=== PATIENT | male | born 1955 | race Caucasian/White ===

== ENCOUNTER 2017-11-11 12:12 | Emergency (ER) | payer BC ==
[~2017-11-11] VITALS: Ht 177.8 cm; Wt 101.2 kg
[2017-11-11 13:01] LABS: MEAN CORPUSCULAR HEMOGLOBIN 33.4 PG (27.0-31.0); MEAN CORPUSCULAR HGB CONC 32.9 G/DL (32.0-36.0); MEAN CORPUSCULAR VOLUME 102 FL (80-99); MEAN PLATELET VOLUME 10.4 FL (6.5-10.1); PLATELET COUNT 88 K/UL (150-450); RED BLOOD COUNT 4.52 M/UL (4.70-6.10); RED CELL DISTRIBUTION WIDTH 12.8 % (11.6-14.8); WHITE BLOOD COUNT 3.8 K/UL (4.8-10.8)
[2017-11-11] MEDS ORDERED: Norco 5mg/325mg tab ORAL ONE (13:30)
[2017-11-11] MEDS ORDERED: Amoxicillin 500mg cap ORAL ONE (13:30)
[2017-11-11 13:32] LABS: BAND NEUTROPHILS % (MANUAL) 2 % (0-8); BASOPHILS % (MANUAL) 1 % (0-2); EOSINOPHILS % (MANUAL) 2 % (0-3); LYMPHOCYTES % (MANUAL) 34 % (20-45); MACROCYTES 1+; NEUTROPHILS % (MANUAL) 53 % (45-75); PLATELET ESTIMATE DECREASED; PLATELET MORPHOLOGY NORMAL; TOTAL CELLS COUNTED 100
[2017-11-11 13:39] LABS: PATH BLOOD SMEAR/OMC SENT TO PATHOLOGIST
[2017-11-11 14:45] LABS: ANION GAP 10 mmol/L (5-15); CALCIUM 8.8 MG/DL (8.5-10.1); CARBON DIOXIDE 25 MMOL/L (21-32); CHLORIDE 104 MMOL/L (98-107); CREATININE 0.8 MG/DL (0.55-1.30); GLOMERULAR FILTRATION RATE > 60 mL/min (>60); POTASSIUM 3.7 MMOL/L (3.5-5.1); SODIUM 139 MMOL/L (136-145)
[2017-11-11 14:56] LABS: ALANINE AMINOTRANSFERASE 52 U/L (12-78); ALBUMIN/GLOBULIN RATIO 0.8 (1.0-2.7); ASPARTATE AMINO TRANSFERASE 84 U/L (15-37); TOTAL PROTEIN 7.9 G/DL (6.4-8.2)
[2017-11-11 14:58] LABS: BILIRUBIN,DIRECT 0.4 MG/DL (0.0-0.3)
--- NOTE | 2017-11-11 15:43 | Emergency Room Report ---
History of Present Illness General Chief Complaint: General Complaint Source: Patient Present Illness HPI 62 y/o male c/o evaluation due to low platelet count by PCP. States he had labs drawn and had a platelet count of 70. Patient's PCP then told the patient he had to come to the ER for evaluation. Patient states he has a problem with drinking ETOH in excess and was in a music festival 2 months ago in [place] and upon returning has been having some fatigue. States he's been worked up by PCP but then platelet count was at 70k and was advised to go to the ER for further eval. Denies any unexplained weight loss, easy bruising, easy bleeding, current n/v/f/c/d, abd pain, back pain, neck pain, photophobia, phonophobia, CP, SOB or headache. Allergies: Coded Allergies: SHELLFISH DERIVED (Verified Allergy, Unknown, 11/11/17) Patient History Past Medical History: see triage record Pertinent Family History: NM, other - breast cancer Social History: Reports: alcohol use Reviewed Nursing Documentation: PMH: Agreed, PSxH: Agreed Nursing Documentation-PMH Past Medical History: No Stated History Review of Systems All Other Systems: negative except mentioned in HPI Physical Exam Vital Signs Date Time Temp Pulse Resp B/P (MAP) Pulse Ox O2 Delivery O2 Flow Rate FiO2 11/11/17 12:21 97.7 76 20 144/89 96 Room Air Sp02 EP Interpretation: reviewed, normal General Appearance: no apparent distress, alert, GCS 15, non-toxic Head: normocephalic, atraumatic Eyes: bilateral eye normal inspection, bilateral eye PERRL ENT: hearing grossly normal, normal pharynx, no angioedema, normal voice Neck: full range of motion, supple/symm/no masses Respiratory: chest non-tender, lungs clear, normal breath sounds, speaking full sentences Cardiovascular #1: regular rate, rhythm, no edema Musculoskeletal: back normal, gait/station normal, normal range of motion, non- tender Neurologic: alert, oriented x3, responsive, motor strength/tone normal, sensory intact, speech normal Skin: normal color, no rash, warm/dry, well hydrated Lymphatic: no adenopathy Medical Decision Making PA Attestation Dr. Sprague my supervising physician with whom patient management has been discussed with. Diagnostic Impression: Primary Impression: Thrombocytopenia Additional Impressions: ETOH abuse Abnormal LFTs Macrocytic ER Course Pt. presents to the ED c/o low platelet Ddx considered but are not limited to anemia, thrombocytopenia, sepsis, ETOH abuse, leukemia Vital signs: are WNL, pt. is afebrile H&PE are most consistent with macrocyticnormocromic anemia with thrombocytopenia likely due to ETOH abuse.Patients platelet's improved from previous reading. Patient states he feels ok and does not understand why he was forced to come to the ER. Advised to f/u with PCP for further eval and to abstain from ETOH use. Advised of possible nutritional deficiency from ETOH use. ORDERS: CBC, CMP, Path Smear ED INTERVENTIONS: none required at this time. DISCHARGE: At this time pt. is stable for d/c to home. Will provide printed patient care instructions, and any necessary prescriptions. Care plan and follow up instructions have been discussed with the patient prior to discharge. Laboratory Tests Test 11/11/17 12:45 11/11/17 14:16 White Blood Count 3.8 K/UL (4.8-10.8) L Red Blood Count 4.52 M/UL (4.70-6.10) L Hemoglobin 15.1 G/DL (14.2-18.0) Hematocrit 45.9 % (42.0-52.0) Mean Corpuscular Volume 102 FL (80-99) H Mean Corpuscular Hemoglobin 33.4 PG (27.0-31.0) H Mean Corpuscular Hemoglobin Concent 32.9 G/DL (32.0-36.0) Red Cell Distribution Width 12.8 % (11.6-14.8) Platelet Count 88 K/UL (150-450) L Mean Platelet Volume 10.4 FL (6.5-10.1) H Neutrophils (%) (Auto) % (45.0-75.0) Lymphocytes (%) (Auto) % (20.0-45.0) Monocytes (%) (Auto) % (1.0-10.0) Eosinophils (%) (Auto) % (0.0-3.0) Basophils (%) (Auto) % (0.0-2.0) Differential Total Cells Counted 100 Neutrophils % (Manual) 53 % (45-75) Lymphocytes % (Manual) 34 % (20-45) Monocytes % (Manual) 8 % (1-10) Eosinophils % (Manual) 2 % (0-3) Basophils % (Manual) 1 % (0-2) Band Neutrophils 2 % (0-8) Platelet Estimate Decreased L Platelet Morphology Normal Macrocytosis 1+ Sodium Level 139 MMOL/L (136-145) Potassium Level 3.7 MMOL/L (3.5-5.1) Chloride Level 104 MMOL/L (98-107) Carbon Dioxide Level 25 MMOL/L (21-32) Anion Gap 10 mmol/L (5-15) Blood Urea Nitrogen 11 mg/dL (7-18) Creatinine 0.8 MG/DL (0.55-1.30) Estimate Glomerular Filtration Rate > 60 mL/min (>60) Glucose Level 95 MG/DL (74-106) Calcium Level 8.8 MG/DL (8.5-10.1) Total Bilirubin 1.4 MG/DL (0.2-1.0) H Direct Bilirubin 0.4 MG/DL (0.0-0.3) H Aspartate Amino Transferase (AST) 84 U/L (15-37) H Alanine Aminotransferase (ALT) 52 U/L (12-78) Alkaline Phosphatase 122 U/L (46-116) H Total Protein 7.9 G/DL (6.4-8.2) Albumin 3.5 G/DL (3.4-5.0) Globulin 4.4 g/dL Albumin/Globulin Ratio 0.8 (1.0-2.7) L Last Vital Signs Date Time Temp Pulse Resp B/P (MAP) Pulse Ox O2 Delivery O2 Flow Rate FiO2 11/11/17 12:21 97.7 76 20 144/89 96 Room Air Disposition: HOME, SELF-CARE Condition: Stable Referrals: [employer] [facility],REFERRIN (PCP) Patient Instructions: Alcohol Abuse and Nutrition, Alcoholic Liver Disease, Thrombocytopenia Additional Instructions: Patient advised to follow up with PCP regarding findings. Patient advised to return if they experience any shortness of breath, chest pain, abdominal pain, uncontrollable bleeding, or severe headache. Patient advised to abstain from alcohol use. RICARDO BYRD Nov 11, 2017 15:43
[2017-11-11 15:45] VITALS: BP 135/84
[2017-11-12 12:08] LABS: OTHERS PATHOLOGIST COMMENT
== END 2017-11-11 15:45 | disposition home or self-care (01) ==
LOC: EMR 13:37
DX: D69.6 Thrombocytopenia, unspecified (principal); F10.10 Alcohol abuse, uncomplicated; R79.89 Other specified abnormal findings of blood chemistry; Z91.013 Allergy to seafood
CPT/HCPCS: 36415; 80053; 82248; 85007; 85025; 85060; 99283